=== PATIENT | female | born 1980 | race African-American/Black ===

== ENCOUNTER 2018-06-20 19:53 | Emergency (ER) | payer OTHER ==
[~2018-06-20] VITALS: Ht 172.7 cm; Wt 136.1 kg
[2018-06-20 20:05] VITALS: BP 108/75
--- NOTE | 2018-06-20 20:05 | NUR ---
ED Nurse Note: Pt arrived amulatory, A/Ox4. Pt states she has been experiencing pain and difficulty swallowing and fevers for 4 days.
[2018-06-20] MEDS ORDERED: NKM (20:07)
[2018-06-20] MEDS ORDERED: Lidocaine 2% Visc 15ml soln ORAL ONE (21:00)
[2018-06-20] MEDS ORDERED: Clindamycin 150mg cap ORAL ONE (21:00)
[2018-06-20] MEDS ORDERED: Dexamethasone 4mg/ml vial IM ONE (21:00)
--- NOTE | 2018-06-20 21:05 | Emergency Room Report ---
History of Present Illness General Chief Complaint: Flu Like Symptoms Source: Patient Present Illness HPI 38-year-old female presents to the emergency department complaining of 7 out of 10 in severity pain in the throat primarily on the left side with tonsillar swelling 4 days. Patient reports change in her voice as well. Patient states that yesterday her symptoms were the worst and they have improved slightly today however she states it's too painful to keep swallowing and eating at home. Pt states she is only been taking NyQuil with very minimal relief of her symptoms. Patient reports tonsillar swelling. He reports chills she denies fevers. States she is up-to-date with her vaccinations she denies ill contacts with similar symptoms and denies recent travel. Denies neck pain or stiffness or a sudden onset headache. Denies cough. Allergies: Coded Allergies: No Known Allergies (Unverified , 06/20/18) Patient History Past Medical History: see triage record Past Surgical History: none Pertinent Family History: none Last Menstrual Period: may 2018 Now: No Immunizations: UTD Reviewed Nursing Documentation: PMH: Agreed; PSxH: Agreed Nursing Documentation-PMH Past Medical History: No Stated History Review of Systems All Other Systems: negative except mentioned in HPI Physical Exam Vital Signs Date Time Temp Pulse Resp B/P (MAP) Pulse Ox O2 Delivery O2 Flow Rate FiO2 06/20/18 20:01 98.2 71 16 108/75 95 Room Air Sp02 EP Interpretation: reviewed, normal General Appearance: no apparent distress, alert, GCS 15, non-toxic Head: normocephalic, atraumatic Eyes: bilateral eye normal inspection, bilateral eye PERRL ENT: hearing grossly normal, normal voice, TMs + canals normal, uvula midline, moist mucus membranes, tonsillar swelling - bilaterally, no appreciable soft palate swelling or or fullness, pharyngeal erythema, tonsillar exudate - questionable exudates noted on the left tonsill vs. food, other - no stridor. pt. able to tolerate orally with pain Neck: full range of motion Respiratory: chest non-tender, lungs clear, normal breath sounds, no respiratory distress, no wheezing, speaking full sentences Cardiovascular #1: regular rate, rhythm Musculoskeletal: back normal, gait/station normal, normal range of motion, non- tender Neurologic: alert, oriented x3, responsive, motor strength/tone normal, sensory intact, speech normal, grossly normal Psychiatric: judgement/insight normal Skin: normal color, no rash, warm/dry, well hydrated Lymphatic: no adenopathy Medical Decision Making PA Attestation Dr. Rosario is my supervising Physician whom patient management has been discussed with. Diagnostic Impression: Primary Impression: Acute bacterial tonsillitis ER Course Pt. presents to the ED c/o : sore throat, tonsillar swelling, and nasal congestion x 2 days Ddx considered but are not limited to: pharyngitis, strep, CODING ADVISOR, ludwigs angina, URI Vital signs: are WNL, pt. is afebrile H&PE are most consistent with: Tonsilitis presumed strep. --uvula is midline, and pt. reports some improvement in her symptoms from yesterday. CODING ADVISOR is less likely. ORDERS: None required at this time as the diagnosis is clinical ED INTERVENTIONS: Decadron IM -Lidocaine Viscous PO -Clindamycin PO Patient is stable for very close outpatient treatment and follow-up. Discussed with this patient strict ED return precautions for worsening of her symptoms or new symptoms especially swelling specifically on one side or the uvula is not Hanging midline. Discussed with patient I she feels she is not getting better in any way that she needs to return for more aggressive management. Patient verbalizes her understanding and agreement with this treatment plan. DISCHARGE: At this time pt. is stable for d/c to home. Will provide printed patient care instructions, and any necessary prescriptions. Care plan and follow up instructions have been discussed with the patient prior to discharge. Last Vital Signs Date Time Temp Pulse Resp B/P (MAP) Pulse Ox O2 Delivery O2 Flow Rate FiO2 06/20/18 20:01 98.2 71 16 108/75 95 Room Air Disposition: HOME, SELF-CARE Condition: Stable Scripts Prednisone* (PREDNISONE*) 20 Mg Tablet 40 MG ORAL DAILY for 3 Days, #6 TAB Prov: Alicia Pizarro 06/20/18 Acetaminophen* (TYLENOL EXTRA STRENGTH*) 500 Mg Tablet 500 MG ORAL Q6H PRN for Mild Pain/Temp > 100.5, #20 TAB 0 Refills Prov: Alicia Pizarro 06/20/18 Lidocaine HCl 2% Viscous (Lidocaine HCl 2% Viscous) 100 Ml Solution 10 ML ORAL QID, #220 ML Prov: Alicia Pizarro 06/20/18 Clindamycin Hcl (CLEOCIN HCL) 300 Mg Capsule 300 MG PO Q4HR for 10 Days, #40 CAP Prov: Alicia Pizarro 06/20/18 Patient Instructions: Tonsillitis Additional Instructions: Take medications as directed. Follow up with a Primary Care Provider in 3-5 days, even if your symptoms have resolved. --Please review list of primary care clinics, if you do not already have a primary care provider Return sooner to ED if new symptoms occur, or current symptoms become worse. - Please note that this Emergency Department Report was dictated using StyleChat by [employer] caregiver technology software, occasionally this can lead to erroneous entry secondary to interpretation by the dictation equipment. Alicia Pizarro Jun 20, 2018 21:05
[2018-06-20] MEDS ORDERED: PREDNISONE20 MG ORAL (21:07)
[2018-06-20] MEDS ORDERED: LIDOCAINE VISC100 ML ORAL (21:07)
[2018-06-20] MEDS ORDERED: TYLENOL EXTRA500 MG ORAL (21:07)
[2018-06-20] MEDS ORDERED: CLEOCIN HCL300 MG PO (21:07)
[2018-06-20 21:20] VITALS: BP 110/80
--- NOTE | 2018-06-20 21:20 | NUR ---
ED Nurse Note: Pt cleared by . Pt is A/Ox4, ambulatory with steady gait. Accompanied by significant other. Discharge instructions and prescriptions provided to patient. Pt verbalized understanding of all instructions. All belongings were taken with patient. ID band removed.
== END 2018-06-20 21:20 | disposition home or self-care (01) ==
LOC: EMR 21:09
DX: J03.80 Acute tonsillitis due to other specified organisms (principal); B96.89 Other specified bacterial agents as the cause of diseases classified elsewhere
CPT/HCPCS: 96372; 99283; J1100